=== PATIENT | female | born 1960 | race Caucasian/White ===

== ENCOUNTER 2018-11-07 07:56 | Day surgery (SDC) | payer OTHER, MEDICAID ==
[2018-11-06 14:50] LABS: Basophils # (auto) 0 uL; Basophils % (auto) 0.4 % (0.0-2.0); Eosinophils # (auto) 0.3 uL; Eosinophils % (auto) 3.6 % (0.0-7.0); Hematocrit 41.2 % (36.0-46.0); Hemoglobin 13.5 g/dL (12.2-16.2); Lymphocytes # (auto) 2.3 uL; Lymphocytes % (auto) 26.1 % (10.0-50.0); Mean Corpuscular Hemoglobin 29.4 pg (28.0-32.0); Mean Corpuscular Hgb Conc. 32.8 g/dL (32.0-36.0); Mean Corpuscular Volume 89.4 fL (80.0-100.0); Monocytes # (auto) 0.6 uL; Monocytes % (auto) 6.2 % (0.0-12.0); Neutrophils # (auto) 5.7 uL; Neutrophils % (auto) 63.7 % (37.0-80.0); Platelet Count (auto) 336 10^3/uL (140-450); Red Cell Distribution Width 12.8 % (11.8-14.3); White Blood Cell 8.9 10^3/uL (4.4-10.8)
[2018-11-06 14:55] LABS: Urine Bacteria FEW /hpf (None Seen); Urine Blood Negative /uL (Negative); Urine Specific Gravity 1.018 (1.001-1.035); Urine WBC 40 /hpf (0 - 5)
[2018-11-06 15:04] LABS: INR 0.92 (0.9-1.15); Partial Thromboplastin Time 25.6 sec (23.78-33.04); Prothrombin Time 9.9 sec (9.27-12.13)
[2018-11-06 15:07] LABS: Albumin 3.5 g/dL (3.4-5.0); BUN/Creatinine Ratio 17.8; Calcium 9.1 mg/dL (8.5-10.1); Potassium 4.7 mmol/L (3.5-5.1)
[2018-11-06 15:10] LABS: Bilirubin, Total 0.1 mg/dL (0.2-1.0); Total Protein 7.6 g/dL (6.4-8.2)
[~2018-11-07] VITALS: Ht 170.2 cm; Wt 93.9 kg
[~2018-11-07 07:56] MED LIST: ESTR1TAB3 PO; FENO54TA4 PO; GABA300C10 PO; GEMF600T7 PO; INSDRIP SC; INSLANTI SC; LEVO112T4 PO; LISI2.5T47 PO; LORA-622 PO; LOVA40TA72 PO; MELO1TAB56 PO; OMEG1205 PO; OMEP20TA PO; OXYB15TA12 PO; PROP10TA57 PO; TEMA15CA PO; TIZA2CAP7 PO; TRAM50TA2 PO; VORT10TA PO
[2018-11-07] MEDS ORDERED: ceFAZolin 1GM/50ML 50 ML IV ONE (08:05)
[2018-11-07] MEDS ORDERED: MIDAZOLAM HCL 1MG/1ML-2 ML VIAL IV PRN ×2 (09:15→10:30)
[2018-11-07] MEDS ORDERED: KETOROLAC TROMETH 30 MG/ML 1ML VIAL IV ONE ×2 (09:15→10:30)
[2018-11-07] MEDS ORDERED: MORPHINE SULFATE 4 MG/ML SYR/VIAL IV PRN ×2 (09:15→10:30)
[2018-11-07] MEDS ORDERED: ONDANSETRON HCL 4 MG/2 ML VIAL IV ONE ×2 (09:15→10:30)
[2018-11-07] MEDS ORDERED: ePHEDrine SULFATE 50 MG/ML AMP IV PRN ×2 (09:15→10:30)
[2018-11-07] MEDS ORDERED: HYDROmorphone HCL 2 MG/ML VL IV PRN ×2 (09:15→10:30)
[2018-11-07] MEDS ORDERED: MEPERIDINE HCL (50 MG/ML) 1 ML VIAL ONE (09:28)
[2018-11-07] MEDS ORDERED: MIDAZOLAM HCL 1MG/1ML-2 ML VIAL ONE (09:28)
[2018-11-07] MEDS ORDERED: fentaNYL CITRATE 100 MCG/2 ML VL ONE (09:28)
[2018-11-07] MEDS ORDERED: MORPHINE SULFATE 4 MG/ML SYR/VIAL IV ONE ×2 (10:00→12:00)
[2018-11-07] MEDS ORDERED: PROPOFOL 10 MG/ML 20 ML IV ONE (10:04)
[2018-11-07] MEDS ORDERED: KETOROLAC TROMETH 30 MG/ML 1ML VIAL ONE (10:04)
[2018-11-07] MEDS ORDERED: DexAMETHasone SOD PHOS 10MG/1ML VIAL INJ ONE (10:04)
[2018-11-07] MEDS ORDERED: ROPIVACAINE 0.5% (5MG/ML) 20ML AMPULE IJ ONE (10:14)
[2018-11-07] MEDS ORDERED: LABETALOL HCL 5 MG/ML 4ML SYRINGE IV PRN (10:30)
[2018-11-07] MEDS ORDERED: hydrALAZINE HCL 20 MG/ML VL IV PRN ×2 (10:30)
[2018-11-07] MEDS ORDERED: ACCU-CHEK COMFORT CURVE STRIP VI ONE (10:30)
[2018-11-07 11:04] VITALS: BP 131/78
== END 2018-11-07 11:20 | disposition home or self-care (01) ==
LOC: SUR 07:56
PROVIDERS: ATTEND Podiatrist Foot & Ankle Surgery
DX: M20.12 Hallux valgus (acquired), left foot (principal); M21.612 Bunion of left foot; E66.9 Obesity, unspecified; E11.9 Type 2 diabetes mellitus without complications; F31.9 Bipolar disorder, unspecified; F41.9 Anxiety disorder, unspecified; I10 Essential (primary) hypertension; I25.10 Atherosclerotic heart disease of native coronary artery without angina pectoris; K21.9 Gastro-esophageal reflux disease without esophagitis; I49.9 Cardiac arrhythmia, unspecified; E03.9 Hypothyroidism, unspecified; G89.29 Other chronic pain; F19.20 Other psychoactive substance dependence, uncomplicated; Z88.5 Allergy status to narcotic agent; Z68.32 Body mass index [BMI] 32.0-32.9, adult; Z98.890 Other specified postprocedural states
CPT/HCPCS: 28285; 28296; 36415; 73620; 80053; 81001; 82962; 85025; 85610; 85730; 88304; 88311; C1713; C1769; J0690; J1100; J1885; J2175; J2250; J2704; J2795; J3010; Q4137

== ENCOUNTER 2019-05-15 18:34 | Emergency (ER) | payer OTHER, MEDICAID ==
[~2019-05-15] VITALS: Ht 165.1 cm; Wt 90.7 kg
[2019-05-15 18:43] VITALS: BP 135/87
[2019-05-15 19:11] LABS: Basophils # (auto) 0.1 uL; Basophils % (auto) 0.5 % (0.0-2.0); Eosinophils # (auto) 0.1 uL; Hematocrit 43.4 % (36.0-46.0); Hemoglobin 14.1 g/dL (12.2-16.2); Lymphocytes % (auto) 21.4 % (10.0-50.0); Mean Corpuscular Hemoglobin 28.9 pg (28.0-32.0); Mean Corpuscular Hgb Conc. 32.4 g/dL (32.0-36.0); Mean Corpuscular Volume 89.1 fL (80.0-100.0); Monocytes # (auto) 0.6 uL; Monocytes % (auto) 6.2 % (0.0-12.0); Neutrophils # (auto) 6.8 uL; Neutrophils % (auto) 70.9 % (37.0-80.0); Platelet Count (auto) 286 10^3/uL (140-450); Red Blood Cells 4.87 10^6/uL (4.0-5.20); Red Cell Distribution Width 13.7 % (11.8-14.3); White Blood Cell 9.6 10^3/uL (4.4-10.8)
[2019-05-15 19:27] LABS: Albumin 3.4 g/dL (3.4-5.0); Anion Gap 10 (5-15); BUN/Creatinine Ratio 15.6; Blood Alcohol < 3.0 mg/dL (0-5); Blood Urea Nitrogen 15 mg/dL (7-18); Calcium 8.9 mg/dL (8.5-10.1); Carbon Dioxide 21 mmol/L (21-32); Chloride 109 mmol/L (98-107); GFR African American 76 mL/min; GFR Non-African American 63 mL/min; Glucose 127 mg/dL (74-106); Potassium 3.7 mmol/L (3.5-5.1); Sodium 140 mmol/L (136-145)
[2019-05-15 19:32] LABS: Alanine Aminotransferase 21 U/L (13-56); Alkaline Phosphatase 53 U/L (45-117); Aspartate Aminotransferase 18 U/L (15-37); Bilirubin, Total 0.4 mg/dL (0.2-1.0); Total Protein 7.7 g/dL (6.4-8.2)
== END 2019-05-15 20:40 | disposition left against medical advice (07) ==
LOC: EDUNIT# 18:34 → ER 18:34 → EDBD 18:34 → ER 20:40
DX: R41.0 Disorientation, unspecified (principal); R53.1 Weakness; E11.9 Type 2 diabetes mellitus without complications; I10 Essential (primary) hypertension; F32.9 Major depressive disorder, single episode, unspecified; Z87.440 Personal history of urinary (tract) infections
CPT/HCPCS: 36415; 80053; 80320; 84484; 85025

== ENCOUNTER 2020-03-20 07:53 | Day surgery (SDC) | payer OTHER, MEDICAID ==
[2020-03-16 15:51] LABS: Basophils # (auto) 0.1 10 ^3/uL (0-0.2); Basophils % (auto) 0.9 % (0.0-2.0); Eosinophils # (auto) 0.4 10 ^3/uL (0-0.8); Eosinophils % (auto) 5.1 % (0.0-7.0); Hematocrit 43.6 % (36.0-46.0); Hemoglobin 14.2 g/dL (12.2-16.2); Lymphocytes # (auto) 3.5 10 ^3/uL (0.4-5.4); Lymphocytes % (auto) 41.9 % (10.0-50.0); Mean Corpuscular Hemoglobin 29.4 pg (28.0-32.0); Mean Corpuscular Hgb Conc. 32.5 g/dL (32.0-36.0); Mean Corpuscular Volume 90.5 fL (80.0-100.0); Monocytes # (auto) 0.5 10 ^3/uL (0-1.3); Monocytes % (auto) 6.2 % (0.0-12.0); Neutrophils # (auto) 3.8 10 ^3/uL (1.6-8.6); Neutrophils % (auto) 45.9 % (37.0-80.0); Nucleated Red Blood Cells % 0.1 %; Platelet Count (auto) 280 10^3/uL (140-450); Red Blood Cells 4.82 10^6/uL (4.0-5.20); Red Cell Distribution Width 14.1 % (11.8-14.3); White Blood Cell 8.2 10^3/uL (4.4-10.8)
[2020-03-16 16:49] LABS: INR 0.96 (0.9-1.15); Partial Thromboplastin Time 25.2 sec (23.0-31.2)
[2020-03-16 17:52] LABS: Albumin 3.6 g/dL (3.4-5.0); Calcium 9.3 mg/dL (8.5-10.1); Potassium 3.9 mmol/L (3.5-5.1)
[2020-03-16 17:55] LABS: BUN/Creatinine Ratio 14.2; Bilirubin, Total 0.4 mg/dL (0.2-1.0); Total Protein 7.4 g/dL (6.4-8.2)
[2020-03-18 14:34] LABS: Urine Bacteria NONE SEEN /hpf (None Seen); Urine Blood Negative /uL (Negative); Urine Specific Gravity 1.026 (1.001-1.035); Urine WBC 3 /hpf (0 - 5)
[~2020-03-20] VITALS: Ht 170.2 cm; Wt 95.3 kg
[~2020-03-20 07:53] MED LIST changes: +ARIP1TAB61 PO; +BUSP30TA21 PO; +DULO60CA PO; -FENO54TA4 PO; -GABA300C10 PO; -GEMF600T7 PO; +GLIP10TA9 PO; +HYDR-4833 PO; -LEVO112T4 PO; +LEVO125T7 PO; -OMEG1205 PO; +OMEG1CAP31 PO; -OMEP20TA PO; +PANT40TA2 PO; -PROP10TA57 PO; -TEMA15CA PO; -TRAM50TA2 PO; -VORT10TA PO
[2020-03-20] MEDS ORDERED: ceFAZolin 1GM/50ML 100 ML IV ONE (08:14)
[2020-03-20] MEDS ORDERED: BUPIVACAINE 0.25% INJ 50ML VIAL ONE (10:03)
[2020-03-20] MEDS ORDERED: LIDOCAINE 1% (LOCAL ANESTH.) PF 5ml SDV ONE (10:28)
[2020-03-20] MEDS ORDERED: MIDAZOLAM HCL 1MG/1ML-2 ML VIAL ONE (10:30)
[2020-03-20] MEDS ORDERED: diphenhdrAMINE HCL 50 MG/1 ML VL ONE (10:31)
[2020-03-20] MEDS ORDERED: METOCLOPRAMIDE HCL 5MG/ml INJ 2ml VIAL ONE (10:31)
[2020-03-20] MEDS ORDERED: GLYCOPYRROLATE 0.2 MG/ML 1ML VIAL ONE (10:34)
[2020-03-20] MEDS ORDERED: PROPOFOL 10 MG/ML 20 ML IV ONE (10:36)
[2020-03-20] MEDS ORDERED: ACCU-CHEK COMFORT CURVE STRIP VI ONE (11:15)
[2020-03-20] MEDS ORDERED: ONDANSETRON HCL 4 MG/2 ML VIAL IV PRN (11:15)
[2020-03-20] MEDS ORDERED: NALOXONE HCL 0.4 MG/ML VIAL IV PRN (11:15)
[2020-03-20] MEDS ORDERED: HYDROmorphone HCL 2 MG/ML VL IV PRN (11:15)
[2020-03-20 11:46] VITALS: BP 141/78
== END 2020-03-20 12:01 | disposition home or self-care (01) ==
LOC: SUR 07:53
PROVIDERS: ATTEND Podiatrist Foot & Ankle Surgery
DX: T84.293A Other mechanical complication of internal fixation device of bones of foot and toes, initial encounter (principal); I10 Essential (primary) hypertension; E11.9 Type 2 diabetes mellitus without complications; E66.01 Morbid (severe) obesity due to excess calories; E07.9 Disorder of thyroid, unspecified; E11.40 Type 2 diabetes mellitus with diabetic neuropathy, unspecified; G47.33 Obstructive sleep apnea (adult) (pediatric); K21.9 Gastro-esophageal reflux disease without esophagitis; Z90.710 Acquired absence of both cervix and uterus; Z98.51 Tubal ligation status; Z90.721 Acquired absence of ovaries, unilateral; Z98.890 Other specified postprocedural states; Z79.84 Long term (current) use of oral hypoglycemic drugs; Z11.59 Encounter for screening for other viral diseases; Z79.899 Other long term (current) drug therapy; X58.XXXA Exposure to other specified factors, initial encounter; Y93.89 Activity, other specified; Y92.89 Other specified places as the place of occurrence of the external cause; Y99.8 Other external cause status
CPT/HCPCS: 20680; 36415; 80053; 81001; 82962; 85025; 85610; 85730; J0690; J1200; J2250; J2704; J2765; J3490; L3260; U0003

== ENCOUNTER 2024-05-12 19:43 | Emergency (ER) | payer MEDICAID, OTHER ==
[~2024-05-12] VITALS: Ht 170.2 cm; Wt 100.0 kg
[~2024-05-12 19:43] MED LIST changes: +ARIP15TA48 PO; -ARIP1TAB61 PO; -DULO60CA PO; +DULO60CA41 PO; -ESTR1TAB3 PO; +ESTR1TAB6 PO; +MELO15TA29 PO; -MELO1TAB56 PO; +OMEG-28 PO; -OMEG1CAP31 PO
[2024-05-12 20:10] VITALS: PULSE 85; RESP 16; O2SAT 96
[2024-05-12 20:12] VITALS: BP 143/80; PULSE 85; RESP 29; O2SAT 100
[2024-05-12] MEDS: SODIUM CHLORIDE 0.9% 1,000 ML IV ONE ×2 (20:13→20:55)
[2024-05-12] MEDS: levoFLOXacin 500MG 100 ML IV ONE (20:20)
[2024-05-12 20:40] LABS: Chloride 93 mmol/L (98-107); Potassium 4.5 mmol/L (3.5-5.1); Sodium 126 mmol/L (136-145)
[2024-05-12 20:41] LABS: Calcium 9.9 mg/dL (8.7-10.4)
[2024-05-12 20:42] LABS: Anion Gap 17 (5-15); Carbon Dioxide 16 mmol/L (20-31)
[2024-05-12 20:47] LABS: BUN/Creatinine Ratio 14.2 (10.0-20.0); Blood Urea Nitrogen 20 mg/dL (9-23)
[2024-05-12] MEDS: InsuLIN REG 1unit/0.01ml Soln (100units/ml) IV ONE (20:55)
[2024-05-12 21:07] LABS: Base Excess -8.7 mmol/L (-2.0-3.0)
[2024-05-12 21:19] LABS: Glucose 589 mg/dL (74-106)
[2024-05-12 21:49] LABS: Urine Bacteria None Seen /hpf (None Seen)
[2024-05-12 21:59] LABS: Basophils # (auto) 0.1 10 ^3/uL (0-0.2); Basophils % (auto) 1.1 % (0.0-2.0); Eosinophils # (auto) 0.1 10 ^3/uL (0-0.8); Eosinophils % (auto) 1.1 % (0.0-7.0); Hematocrit 49.4 % (36.0-46.0); Hemoglobin 16.5 g/dL (12.2-16.2); Lymphocytes # (auto) 3.8 10 ^3/uL (0.4-5.4); Lymphocytes % (auto) 32.8 % (10.0-50.0); Mean Corpuscular Hgb Conc. 33.5 g/dL (32.0-36.0); Mean Corpuscular Volume 92.5 fL (80.0-100.0); Monocytes # (auto) 0.9 10 ^3/uL (0-1.3); Neutrophils # (auto) 6.7 10 ^3/uL (1.6-8.6); Nucleated Red Blood Cells % 0.1 %; Platelet Count (auto) 113 10^3/uL (140-450); Red Blood Cells 5.34 10^6/uL (4.0-5.20); Red Cell Distribution Width 13.2 % (11.8-14.3); White Blood Cell 11.7 10^3/uL (4.4-10.8)
[2024-05-12] MEDS ORDERED: DEXTROSE (50%) 50ML SYRG IV PRN (22:00)
[2024-05-12] MEDS ORDERED: INSULIN DRIP 100 UNIT/100ML 100 ML IV SCH (22:00)
[2024-05-12 22:09] LABS: Urine Blood Negative /uL (Negative); Urine Clarity Clear (Clear); Urine Color Light-Yellow (Yellow); Urine Protein, UAD Negative (Negative); Urine Specific Gravity 1.032 (1.001-1.035); Urine Urobilinogen Normal (Negative); Urine WBC <1 /hpf (0 - 5); Urine pH 5.5 (5.0-9.0)
[2024-05-12] MEDS ORDERED: MORPHINE SULFATE INJ 2 MG/ml SYRG IV ONE (22:15)
[2024-05-12] MEDS ORDERED: ONDANSETRON HCL 4 MG/2 ML VIAL IV ONE (22:15)
[2024-05-12] MEDS ORDERED: ACCU-CHEK COMFORT CURVE STRIP VI SCH (22:30)
== END 2024-05-12 22:37 | disposition left against medical advice (07) ==
LOC: EDBD 19:43 → ER 19:43
DX: E11.10 Type 2 diabetes mellitus with ketoacidosis without coma (principal); I10 Essential (primary) hypertension; Z79.1 Long term (current) use of non-steroidal anti-inflammatories (NSAID); Z79.84 Long term (current) use of oral hypoglycemic drugs; G25.81 Restless legs syndrome; Z79.890 Hormone replacement therapy; Z79.899 Other long term (current) drug therapy; Z87.440 Personal history of urinary (tract) infections; Z88.1 Allergy status to other antibiotic agents; Z88.5 Allergy status to narcotic agent; Z95.0 Presence of cardiac pacemaker
CPT/HCPCS: 36415; 36600; 80048; 81001; 82010; 82805; 82962; 93005; 96361; 96374; 99291; J1815; J7030; J2405